=== PATIENT | male | born 1985 | race African-American/Black ===

== ENCOUNTER 2017-08-29 14:58 | Emergency (ER) | payer OTHER ==
[~2017-08-29] VITALS: Ht 165.1 cm; Wt 59.0 kg
[~2017-08-29 14:58] MED LIST: METO10TA PO; PROM1SUP12 PR; ZOLO50TA PO
[2017-08-29 15:00] VITALS: BP 140/75; PULSE 93; RESP 18; TEMP 98.6; O2SAT 95
[2017-08-29] MEDS ORDERED: ONDANSETRON HCL 4 MG/2 ML VIAL IM ONE (15:15)
[2017-08-29 16:16] LABS: AUTOMATED NEUTROPHIL # 11.2 TH/MM3 (1.8-7.7); BASOPHIL % 0.4 % (0.0-2.0); EOSINOPHIL % 0.1 % (0.0-4.0); HEMATOCRIT 45.1 % (39.0-51.0); HEMOGLOBIN 15.3 GM/DL (13.0-17.0); LYMPH % 10.9 % (9.0-44.0); LYMPHOCYTE # 1.4 TH/MM3 (1.0-4.8); MEAN CELL VOLUME 91.8 FL (80.0-100.0); MEAN CORPUSCULAR HEMOGLOBIN 31.3 PG (27.0-34.0); MONO % 3.7 % (0.0-8.0); MONOCYTE # 0.5 TH/MM3 (0-0.9); NEUT % 84.9 % (16.0-70.0); PLATELET COUNT 277 TH/MM3 (150-450); RED BLOOD COUNT 4.91 MIL/MM3 (4.50-5.90); RED CELL DISTRIBUTION WIDTH 13.2 % (11.6-17.2); WHITE BLOOD COUNT 13.2 TH/MM3 (4.0-11.0)
[2017-08-29 16:39] LABS: ALBUMIN 4.3 GM/DL (3.4-5.0); AST (GOT) 15 U/L (15-37); BICARBONATE 23.6 MEQ/L (21.0-32.0); BLOOD UREA NITROGEN 10 MG/DL (7-18); CALCIUM 8.7 MG/DL (8.5-10.1); CHLORIDE 105 MEQ/L (98-107); CREATININE 0.77 MG/DL (0.60-1.30); GLOMERULAR FILTRATION RATE 140 ML/MIN (>89); GLUCOSE,RANDOM 118 MG/DL (74-106); SODIUM (NA) 138 MEQ/L (136-145)
[2017-08-29 16:40] LABS: ALT (GPT) 28 U/L (12-78)
[2017-08-29 16:42] LABS: ALKALINE PHOSPHATASE 91 U/L (45-117); TOTAL BILIRUBIN ADULT 0.5 MG/DL (0.2-1.0); TOTAL PROTEIN 7.5 GM/DL (6.4-8.2)
[2017-08-29 17:08] VITALS: BP 112/56; PULSE 71; RESP 20; TEMP 98.6; O2SAT 100
[2017-08-29] MEDS ORDERED: SODIUM CHLOR 0.9% 1000 ML INJ 1,000 ML IV SCH (17:23)
[2017-08-29] MEDS ORDERED: METOCLOPRAMIDE HCL 10 MG/2 ML VIAL IV PUSH ONE (17:30)
[2017-08-29] MEDS ORDERED: SODIUM CHLORIDE 0.9% FLUSH 10 ML FLUSH IV FLUSH PRN (17:30)
[2017-08-29] MEDS ORDERED: REGL10TA5 PO (17:48)
--- NOTE | 2017-08-29 17:50 | PD ---
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 denies assoc factors such as fever/gross/rash/abd pain/back pain/ cp/d all:nkda pmhx: cycylical vomiting, denies other hx pshx:gb PFSH Past Medical History Asthma: Yes Anxiety: Yes Cardiovascular Problems: No Diminished Hearing: No Endocrine: No Gastrointestinal Disorders: Yes (IBS; GASTROPARESIS; CYCLICAL VOMITING SYNDROME ) GERD: Yes Genitourinary: No Hypertension: Yes Immune Disorder: No Inguinal Hernia: Yes (LEFT) Implanted Vascular Access Dvce: No Musculoskeletal: No Immunizations Current: No Sickle Cell Disease: Yes PNEUMOCCOCAL Vaccine (Year): 2 Past Surgical History Cholecystectomy: Yes Other Surgery: Yes Social History Alcohol Use: Yes Tobacco Use: Yes Substance Use: Yes (POT) Allergies-Medications (Allergen,Severity, Reaction): Coded Allergies: No Known Allergies (Verified , 04/01/16) Reported Meds & Prescriptions Reported Meds & Active Scripts Active Reglan (Metoclopramide HCl) 10 Mg Tab 5 Mg PO Q6 PRN NAUSEA AND VOMITING Reported Zoloft (Sertraline HCl) 50 Mg Tab 50 Mg PO DAILY Phenergan 25 mg supp (Promethazine HCl) 25 Mg Sup 25 Mg MI Q6H PRN FOR NAUSEA/VOMITING Review of Systems General / Constitutional: No: Fever Eyes: No: Visual changes HENT: No: Headaches Cardiovascular: No: Chest Pain or Discomfort Respiratory: No: Shortness of Breath Gastrointestinal: Positive: Nausea, Vomiting Genitourinary: No: Dysuria Musculoskeletal: No: Pain Skin: No Rash Neurologic: No: Weakness Psychiatric: No: Depression Endocrine: No: Polydipsia Hematologic/Lymphatic: No: Easy Bruising Physical Exam Narrative GENERAL: SKIN: Warm and dry. HEAD: Atraumatic. Normocephalic. EYES: Pupils equal and round. No scleral icterus. No injection or drainage. ENT: No nasal bleeding or discharge. Mucous membranes pink and moist. NECK: Trachea midline. No JVD. CARDIOVASCULAR: Regular rate and rhythm. RESPIRATORY: No accessory muscle use. Clear to auscultation. Breath sounds equal bilaterally. GASTROINTESTINAL: Abdomen soft, non-tender, nondistended. MUSCULOSKELETAL: Extremities without clubbing, cyanosis, or edema. No obvious deformities. NEUROLOGICAL: Awake and alert. No obvious cranial nerve deficits. Motor grossly within normal limits. Five out of 5 muscle strength in the arms and legs. Normal speech. PSYCHIATRIC: Appropriate mood and affect; insight and judgment normal. Data Data Last Documented VS Vital Signs Date Time Temp Pulse Resp B/P (MAP) Pulse Ox O2 Delivery O2 Flow Rate FiO2 08/29/17 17:08 98.6 71 20 112/56 (74) 100 Room Air Orders Orders Complete Blood Count With Diff (08/29/17 15:07) Comprehensive Metabolic Panel (08/29/17 15:07) Lipase (08/29/17 15:07) Ondansetron Inj (Zofran Inj) (08/29/17 15:15) Iv Access Insert/Monitor (08/29/17 17:23) Ecg Monitoring (08/29/17 17:23) NPO (08/29/17 17:23) Sodium Chlor 0.9% 1000 Ml Inj (Ns 1000 M (08/29/17 17:23) Sodium Chloride 0.9% Flush (Ns Flush) (08/29/17 17:30) Metoclopramide Inj (Reglan Inj) (08/29/17 17:30) Labs Laboratory Tests Test 08/29/17 15:46 White Blood Count 13.2 TH/MM3 Red Blood Count 4.91 MIL/MM3 Hemoglobin 15.3 GM/DL Hematocrit 45.1 % Mean Corpuscular Volume 91.8 FL Mean Corpuscular Hemoglobin 31.3 PG Mean Corpuscular Hemoglobin Concent 34.0 % Red Cell Distribution Width 13.2 % Platelet Count 277 TH/MM3 Mean Platelet Volume 8.0 FL Neutrophils (%) (Auto) 84.9 % Lymphocytes (%) (Auto) 10.9 % Monocytes (%) (Auto) 3.7 % Eosinophils (%) (Auto) 0.1 % Basophils (%) (Auto) 0.4 % Neutrophils # (Auto) 11.2 TH/MM3 Lymphocytes # (Auto) 1.4 TH/MM3 Monocytes # (Auto) 0.5 TH/MM3 Eosinophils # (Auto) 0.0 TH/MM3 Basophils # (Auto) 0.0 TH/MM3 CBC Comment DIFF FINAL Differential Comment Blood Urea Nitrogen 10 MG/DL Creatinine 0.77 MG/DL Random Glucose 118 MG/DL Total Protein 7.5 GM/DL Albumin 4.3 GM/DL Calcium Level 8.7 MG/DL Alkaline Phosphatase 91 U/L Aspartate Amino Transf (AST/SGOT) 15 U/L Alanine Aminotransferase (ALT/SGPT) 28 U/L Total Bilirubin 0.5 MG/DL Sodium Level 138 MEQ/L Potassium Level 3.8 MEQ/L Chloride Level 105 MEQ/L Carbon Dioxide Level 23.6 MEQ/L Anion Gap 9 MEQ/L Estimat Glomerular Filtration Rate 140 ML/MIN Lipase 81 U/L MDM Medical Decision Making Medical Screen Exam Complete: Yes Emergency Medical Condition: Yes Medical Record Reviewed: Yes Differential Diagnosis pancreatitis v hepatitis v ccyclical vomiting recurrence Narrative Course no leukocytosis, no anemia, normal platelet count. normal electorlytes, normal lipase, normal lft's Diagnosis Primary Impression: Emesis Qualified Codes: R11.2 - Nausea with vomiting, unspecified Scripts Metoclopramide (Reglan) 10 Mg Tab 10 MG PO QID, #12 TAB 0 Refills Prov: Alan Clancy MD 08/29/17 Disposition: 01 DISCHARGE HOME Condition: Stable Alan Clancy MD Aug 29, 2017 17:50
[2017-08-29 19:28] VITALS: BP 130/87; TEMP 98.1
== END 2017-08-29 19:29 | disposition home or self-care (01) ==
LOC: NEPD 14:58
DX: G43.A0 Cyclical vomiting, in migraine, not intractable (principal); Z72.0 Tobacco use
CPT/HCPCS: 80053; 83690; 85025; 96361; 96372; 96374; 99284; J2405; J2765; J7030